=== PATIENT | female | born 1990 | race Hispanic/Latino ===

== ENCOUNTER 2025-08-09 12:46 | Day surgery (SDC) | payer BC ==
[2025-08-09 13:13] VITALS: BMI 22.4
[2025-08-09] MEDS ORDERED: hydrALAZINE 20 MG/ML VIAL SLOW IVP PRN (13:36)
== END 2025-08-09 15:00 | disposition home or self-care (01) ==
LOC: CSHLD/OP 12:46
PROVIDERS: ATTEND Student in an Organized Health Care Education/Training Program
DX: O9A.212 Injury, poisoning and certain other consequences of external causes complicating pregnancy, second trimester (principal); S31.41XA Laceration without foreign body of vagina and vulva, initial encounter; O09.522 Supervision of elderly multigravida, second trimester; O23.592 Infection of other part of genital tract in pregnancy, second trimester; B96.89 Other specified bacterial agents as the cause of diseases classified elsewhere; O98.812 Other maternal infectious and parasitic diseases complicating pregnancy, second trimester; B37.9 Candidiasis, unspecified; Z3A.25 25 weeks gestation of pregnancy; Z88.6 Allergy status to analgesic agent; X58.XXXA Exposure to other specified factors, initial encounter
CPT/HCPCS: 87480; 87510; 87660